=== PATIENT | male | born 1960 | race American Indian/Alaskan Native ===

== ENCOUNTER 2020-01-14 07:07 | Day surgery (SDC) | payer MEDICAID ==
[2020-01-14] VITALS (7 sets, daily range): BP systolic 100–111; BP diastolic 60–76
[~2020-01-14] VITALS: Ht 167.6 cm; Wt 95.0 kg
[2020-01-14] MEDS ORDERED: normal saline 1000ml 1,000 ML IV PRN (07:35)
[2020-01-14] MEDS ORDERED: albumin 25% 100mL bottle x 1 IV PRN (07:35)
[2020-01-14] MEDS ORDERED: FURO80TA87 PO (08:11)
[2020-01-14] MEDS ORDERED: AMOX-117 PO (08:11)
[2020-01-14] MEDS ORDERED: OMEP40CA13 PO (08:11)
[2020-01-14] MEDS ORDERED: ACET-2119 PO (08:12)
== END 2020-01-14 10:20 | disposition home or self-care (01) ==
LOC: SSTAY O 07:07 → MED 3N 07:14 → SSTAY O 10:20
PROVIDERS: ATTEND Radiology Diagnostic Radiology
DX: K70.31 Alcoholic cirrhosis of liver with ascites (principal); Z98.890 Other specified postprocedural states; Z79.899 Other long term (current) drug therapy
CPT/HCPCS: 49083; 87070; C1729; P9047

== ENCOUNTER 2020-01-25 08:03 | Day surgery (SDC) | payer MEDICAID ==
[~2020-01-25] VITALS: Ht 167.6 cm; Wt 87.0 kg
[2020-01-25] VITALS (8 sets, daily range): BP systolic 95–117; BP diastolic 60–79
[~2020-01-25 08:03] MED LIST: ACET-2119 PO; AMOX-117 PO; FURO80TA87 PO; OMEP40CA13 PO
[2020-01-25] MEDS ORDERED: albumin 25% 100mL bottle x 1 IV PRN (08:35)
[2020-01-25] MEDS ORDERED: normal saline 1000ml 1,000 ML IV PRN (08:35)
== END 2020-01-25 11:05 | disposition home or self-care (01) ==
LOC: U 08:03 → MED 3N 08:05 → U 11:05
PROVIDERS: ATTEND Radiology Vascular & Interventional Radiology
DX: K70.31 Alcoholic cirrhosis of liver with ascites (principal); Z98.890 Other specified postprocedural states; Z79.899 Other long term (current) drug therapy
CPT/HCPCS: 49083; C1729; P9047

== ENCOUNTER 2020-02-15 07:54 | Day surgery (SDC) | payer MEDICAID ==
[~2020-02-15] VITALS: Ht 167.6 cm; Wt 79.5 kg
[2020-02-15] MEDS ORDERED: LIDOcaine Viscous 15ml cup ONE (07:59)
[2020-02-15] MEDS ORDERED: MIDAZolam 5mg/5ml vial ONE (07:59)
[2020-02-15] MEDS ORDERED: fentaNYL/PF 50MCG/1 ML 2ML syringe ONE (07:59)
[2020-02-15 08:00] VITALS: BP 106/72
[2020-02-15] MEDS ORDERED: FURO-149 PO (08:14)
[2020-02-15] MEDS ORDERED: FURO-150 PO (08:14)
[2020-02-15] MEDS ORDERED: OMEP40CA13 PO (08:15)
[2020-02-15] MEDS ORDERED: GABA300C PO (08:16)
[2020-02-15 09:27] VITALS: BP 145/82
[2020-02-15 09:37] VITALS: BP 98/62
[2020-02-15 09:47] VITALS: BP 100/66
== END 2020-02-15 10:20 | disposition home or self-care (01) ==
LOC: GI LAB 07:54
PROVIDERS: ATTEND Internal Medicine Gastroenterology
DX: K74.60 Unspecified cirrhosis of liver (principal); I85.00 Esophageal varices without bleeding; K76.6 Portal hypertension; K31.89 Other diseases of stomach and duodenum; K29.50 Unspecified chronic gastritis without bleeding
CPT/HCPCS: 43239; 99152; J2250; J3010; J7040; A4620